=== PATIENT | female | born 1985 | race Caucasian/White ===

== ENCOUNTER → 2018-05-10 17:11 | Outpatient (REF) | payer OTHER, SELFPAY | LOC: LAB 17:11 | PROVIDERS: Family Provider Family Medicine; PCP Family Medicine; Visit Provider Family Medicine | DX: Z34.93 Encounter for supervision of normal pregnancy, unspecified, third trimester (principal) | CPT/HCPCS: 87081; 87653 ==

== ENCOUNTER → 2018-05-23 08:44 | Outpatient (CLI) | payer OTHER, SELFPAY ==
--- NOTE | 2018-05-23 | DI.US.S_ITS ---
PROCEDURE: US OB LIMITED INDICATIONS: 38 weeks size greater than dates OUTSIDE/PRIOR DATING DATA: Last menstrual period (LMP): 08/19/17. LMP-based estimated date of delivery (SCARLETT): 05/26/18. First dating scan (date and location): 11/08/17. Estimated date of delivery (SCARLETT) from first dating scan: 06/05/18.. TECHNIQUE: Real-time scanning was performed of the fetus, with image documentation and biometric measurements. Endovaginal scanning: No COMPARISON: [facility], , OB COMPLETE 14WKS OR MORE, 01/17/2018, 9:04. FINDINGS: General: A single living intrauterine gestation is present. Presentation: Vertex. Placenta: Placental position is anterior, without previa. Amniotic fluid index: 17.7 cm, normal range is 5-24 cm. heart rate: 125 beats per minute. Maternal cervical canal: Not well-seen. biometrics: Biparietal diameter: 37 weeks 4 days Head circumference: 38 weeks 4 days Abdominal circumference: 38 weeks 2 days Femur length: 38 weeks 3 days Estimated gestational age from initial scan: 38 weeks 1 day Composite gestational age from present scan: 38 weeks 2 days Estimated weight and percentile: 3443 g; 67th percentile Measurement variability for biometric dating: +/- 7 days from 14 weeks to 15 weeks 6 days gestation, +/- 10 days from 16 weeks to 21 weeks 6 days gestation, +/- 2 weeks from 22 weeks to 27 weeks 6 days gestation, +/- 3 weeks for 28 weeks gestation or later. weight reference: 4500 g or EFW >90/95% is considered macrosomia or large for gestational age. EFW <10% is small for gestational age. EFW 5% or less is considered intra-uterine growth restriction. Other: Not applicable. IMPRESSION: A single living intrauterine gestation with appropriate interval growth. Dictated by: Tong Coleman [facility] Interpreted: Vero Haskins MD on 05/23/2018 at 10:37 Approved by: Vero Haskins M.D. on 05/23/2018 at 11:22
== END ==
PROVIDERS: Family Provider Family Medicine; PCP Family Medicine; Visit Provider Family Medicine
DX: O36.63X0 Maternal care for excessive fetal growth, third trimester, not applicable or unspecified (principal); Z3A.38 38 weeks gestation of pregnancy
CPT/HCPCS: 76815

== ENCOUNTER 2018-06-06 14:47 | Observation (INO) | payer OTHER, SELFPAY ==
--- NOTE | 2018-06-06 15:49 | DI.US.S_ITS ---
PROCEDURE: US OB LIMITED INDICATIONS: Post dates non reactive NST OUTSIDE/PRIOR DATING DATA: Last menstrual period (LMP): 08/19/17. LMP-based estimated date of delivery (SCARLETT): 05/26/18. First dating scan (date and location): 11/08/17. Estimated date of delivery (SCARLETT) from first dating scan: 06/05/18 TECHNIQUE: Real-time scanning was performed of the fetus, with image documentation. COMPARISON: [facility], OB COMPLETE 14WKS OR MORE, 01/17/2018, 9:04. [facility], OB COMPLETE LESS THAN 14 WKS, 11/08/2017, 11:09. [facility], OB LIMITED, 05/23/2018, 8:58. FINDINGS: A single living intrauterine gestation is present. Presentation: Vertex. Placenta: Placental position is anterior, without previa. Lower placental edge 0.5 to 3 cm from internal cervical os qualifies as low lying placenta. Marginal previa is defined as lower edge 0 to 0.5 mm from internal os. Amniotic fluid index: 12.7 cm, normal range is 5-24 cm. heart rate: 157 beats per minute. Maternal cervical canal: Not well-seen Normal lower limit is 2.5 cm. Estimated gestational age from initial scan: 40 weeks one day BPP: 07/05. IMPRESSION: 1. Single live intrauterine with ultrasound gestational age of 40 weeks one day. 2. BPP 8 out of 8 Dictated by: Jenna Jaime M.D. on 06/06/2018 at 16:45 Approved by: Jenna Jaime M.D. on 06/06/2018 at 16:49
== END 2018-06-06 17:55 | disposition home or self-care (01) ==
LOC: LABOR 14:49
PROVIDERS: Admitting Provider Family Medicine; Family Provider Family Medicine; PCP Family Medicine; Visit Provider Family Medicine
DX: Z34.03 Encounter for supervision of normal first pregnancy, third trimester (principal); Z3A.40 40 weeks gestation of pregnancy
CPT/HCPCS: 76815; 76819; G0378; G0379

== ENCOUNTER 2018-06-07 20:42 | Inpatient (IN) | payer OTHER, SELFPAY ==
[2018-06-08] VITALS (7 sets, daily range): BP systolic 113–136; BP diastolic 54–83; PULSE 76–86; RESP 12–15; TEMP 36.2–36.7; O2SAT 98–100
[2018-06-08] MEDS: ZOLPIDEM 5 MG TABLET PO (00:30)
[2018-06-08 08:24] LABS: Aspartate Aminotransferase 24 IU/L (14-36); BUN Creatinine Ratio 18.3 (6-22); Blood Urea Nitrogen 11 mg/dL (7-17); Estimated Glomerular Filt Rate > 60.0 mL/min (>60); Uric Acid 7.5 mg/dL (2.5-6.2)
[2018-06-08 12:04] LABS: Add Manual Diff / Slide Review NO; Basophils Percent Auto 0.4 % (0-2); Eosinophils Percent Auto 1.8 % (2-4); Hemoglobin 11.7 g/dL (12.0-16.0); Lymphocytes Percent Auto 27.7 % (25-40); Mean Corpuscular HGB Conc 33.4 % (30-36); Mean Corpuscular Hemoglobin 29.9 PG (26-34); Mean Corpuscular Volume 89.5 fL (80-100); Monocytes Percent Auto 6.8 % (3-14); Neutrophils Absolute Auto 4600 /uL (3000-5900); Neutrophils Percent Auto 63.3 % (50-75); Platelet Count 213 X10^3/uL (150-400); Red Blood Cell Count 3.91 X10^6/uL (4.0-5.2); Red Cell Distribution Width 14.9 % (11.6-14.8); White Blood Cell Count 7.2 X10^3/uL (4.5-11.0)
[2018-06-08] MEDS: LACTATED RINGERS 1,000 ML 100 ML IV (15:30)
--- NOTE | 2018-06-08 16:25 | PM.OBHP.1 ---
OB HPI History of Present Illness Chief complaint: INDUCTION Narrative: Ni Jack is a 32 year old female who is brought in today for cervical ripening and they were unable to place Cytotec due to too many uterine contractions. Patient's cervix is borderline favorable approximately 7. She has been jonny but not regular or with significant intensity. She has not had any change in discharge. Her was complicated by gestational hypertension and early preeclampsia. Given she had needed to 40 weeks she was brought in for cervical ripening and induction of labor. Past OB history: This is her 1st Medications: vitamins Allergies: No known drug allergies Past surgical history: Unremarkable Family history: Macrosomia in father's baby's family history. No history of diabetes in her family Holter to behavior: No tobacco, no alcohol no illicit drugs Social history: Patient is . She lives in [facility]. Her parents live in [place], [place] care: Was begun early. Patient had negative serology, A positive, rubella equivocal, GBS negative. Glucose tolerance test was 139 and 3 hr glucose tolerance test was done which was entirely normal. was complicated by gestational hypertension that occurred at approximately 37 weeks. Blood pressures improved with rest and patient never had significant swelling and never had any proteinuria. Uric acid 7.5 this a.m. Evaluation Evaluation Laboratory results: Laboratory Tests 06/07/18 06/08/18 06/08/18 22:30 08:00 08:00 WBC RBC Hgb Hct MCV MCH MCHC RDW Plt Count TNP Neut % (Auto) Lymph % (Auto) [place] % (Auto) Eos % (Auto) Baso % (Auto) Neut # (Auto) BUN 11 Creatinine 0.60 Estimated GFR > 60.0 BUN/Creatinine Ratio 18.3 Uric Acid 7.5 H AST 24 Blood Type O Positive Antibody Screen Negative 06/08/18 08:00 WBC 7.2 RBC 3.91 L Hgb 11.7 L Hct 35.0 L MCV 89.5 MCH 29.9 MCHC 33.4 RDW 14.9 H Plt Count 213 Neut % (Auto) 63.3 Lymph % (Auto) 27.7 [place] % (Auto) 6.8 Eos % (Auto) 1.8 L Baso % (Auto) 0.4 Neut # (Auto) 4600 BUN Creatinine Estimated GFR BUN/Creatinine Ratio Uric Acid AST Blood Type Antibody Screen Meds Home Medications Medication Instructions Recorded Confirmed Type No Known Home Medications 06/08/18 06/08/18 History Allergies Allergy/AdvReac Type Severity Reaction Status Date / Time No Known Drug Allergies Allergy Verified 06/08/18 00:46 Review of Systems Review of Systems Occasional headache, swelling that improved with bedrest. No midepigastric pain. Contractions that are sometimes painful No leaking fluid. No change in discharge. No bleeding Baby has been active Exam Narrative Exam Narrative: Blood pressures have been 120s over 80s Vital signs stable, afebrile Alert and oriented x3 Neck: Supple without adenopathy or thyromegaly Chest: Clear to auscultation without wheezes rhonchi or crackles Cor: Regular rate and rhythm without murmur Abdomen: Gravid with estimated weight 8 and half to 9 lb. Vertex presentation Cervical exam: 1 cm, 70% effaced, -2 station, posterior cervix, ballotable Extremities 1+ pitting edema pretibial and pedal. DTRs are 2+ bilaterally and no clonus External heart monitor shows baseline heart rate initially in the 160s then in the 150s with accelerations and moderate variability with periods of mild variability. No decelerations. Overall category 1 tracing Uterine contractions every 2-3 minutes mild palpation Objective Labs Result Diagrams: 06/08/18 08:00 06/08/18 08:00 Labs: Laboratory Results - last 24 hr 06/07/18 06/08/18 06/08/18 22:30 08:00 08:00 WBC RBC Hgb Hct MCV MCH MCHC RDW Plt Count TNP Neut % (Auto) Lymph % (Auto) [place] % (Auto) Eos % (Auto) Baso % (Auto) Neut # (Auto) BUN 11 Creatinine 0.60 Estimated GFR > 60.0 BUN/Creatinine Ratio 18.3 Uric Acid 7.5 H AST 24 Blood Type O Positive Antibody Screen Negative 06/08/18 08:00 WBC 7.2 RBC 3.91 L Hgb 11.7 L Hct 35.0 L MCV 89.5 MCH 29.9 MCHC 33.4 RDW 14.9 H Plt Count 213 Neut % (Auto) 63.3 Lymph % (Auto) 27.7 [place] % (Auto) 6.8 Eos % (Auto) 1.8 L Baso % (Auto) 0.4 Neut # (Auto) 4600 BUN Creatinine Estimated GFR BUN/Creatinine Ratio Uric Acid AST Blood Type Antibody Screen Assessment and Plan Plan: Plan: 32-year-old at 40 and 3 7 weeks estimated gestational age based on an EDC of 06/05/2018 based on 1st trimester ultrasound and LMP is brought to Labor and delivery for induction of labor after cervical ripening due to smoldering preeclampsia. Patient has had elevated blood pressures over the last 3 weeks of 120 to 130s over 80s to 90s. Patient has had lower extremity edema as well. Now uric acid is 7.5 up from 7.22 days ago. Patient was to receive Cytotec for cervical ripening last night but this was not done because of too many uterine contractions. The contractions are mild to moderate. Long discussion with patient and discussed a trial of Pitocin and if progress did not occur then home and returned on Tuesday for NST and repeat labs and then repeat induction attempt on Tuesday. We discussed all options and patient stated that she prefers to have a at this time. We discussed the risk of a including intraoperative risk as well as risks to the baby as well as recovery and she requests to have a versus a trial of labor. Dr. Paez is consulted for the same. GBS negative, Rh positive 1 hr glucose tolerance test was 139 and 3 hr glucose tolerance test was normal. We will proceed with at patient's request.
[2018-06-08] MEDS: CEFOTETAN 2 GM/50 ML PIGGYBACK IV (16:27)
[2018-06-08] MEDS: CITRIC ACID/SODIUM CITRATE 30 ML SOLUTION PO (16:27)
--- NOTE | 2018-06-08 17:04 | SUR.OPER ---
VIABLE MALE INFANT DELIVERED AT 1704
--- NOTE | 2018-06-08 17:33 | SUR.OPER ---
cord blood tubes x2 sent with OBRN , WELL PLACENTA DOUBLE BAGGED
--- NOTE | 2018-06-08 17:51 | PM.OP.1 ---
Operative Date/Time/Diagnoses Date of procedure: 06/08/18 Time of procedure: 17:51 Pre-op diagnosis: Term intrauterine , preeclampsia, patient requests for section Post-op diagnosis: same Procedure & Clinicians Procedure: Primary low transverse section Same procedure as scheduled: Yes Indications: Term intrauterine with elevated uric acid presumed early preeclampsia who was brought in today for induction. See Dr. Tom is a history and physical. After evaluation all and long discussion by both myself and Dr. Tom patient was requesting section. Surgeon: Zeus Paez Cutter Barrel Drum: Haleigh Tom Anesthesia Type: Spinal Operative Notes Findings: Viable male weighing 9 lb 6.5 oz. Apgars 7 and 8. Meconium. Normal pelvic organs. Closure Type: primary Specimen(s): other Applied: catheter Estimated Blood Loss (mL): 350 Procedure in detail: Consent was discussed and signed with both her and her . She was taken to the operative theater up and following scopes protocol procedure was undertaken. She was placed in a sitting position on the operative table and spinal was undertaken. Excellent result. She was placed in the supine which position and prepped and draped after Paredes was placed. Pfannenstiel incision was then undertaken without complications down to the subcutaneous tissue in the midline. Blunt dissection was used to remove the subcutaneous tissue. No bleeding was noted. Incision was then scored across the midline until muscle air was identified. Curved scissors were then used to his extend both lateral positions. On the fascia. Mamie to used to elevate the fascia superiorly blunt dissection was used except in the midline where curved scissors were used. This was repeated inferiorly. Blunt dissection was then done through the muscle layer until peritoneum was identified. Peritoneum was elevated and under direct visualization into heard and blunt dissection was then done until appropriate sized incision. Bladder blade was placed in the incision and bladder flap was then developed. Bladder blade was placed into the bowel or flap. A low transverse incision was then done on to the uterus until meconium fluid was identified. Blunt dissection was then used to extend the incision. Head was then elevated and with pressure from clinical physician assistant was delivered bulb suction on pharynx and nasal mucosa child was then delivered cord was clamped and cut was crying aggressively. Handed off to awaiting pediatric nurse. Cord bloods were obtained. Placenta was then manually extracted. Uterine contents was wiped with a wet lap sponge x2. No products were noted. Corners incision in the grass with ring forceps along with inferior edge of the wound. Ring forceps were passed through the cervix into the vagina and handed off the operative theater. Incision was then closed with running locked one chromic. This was repeated with a 2nd 1 chromic non locked imbricating suture line. Irrigation was done. Removed. Re-evaluated wound and found to be dry. The bladder flap was then closed with 2.0 running Vicryl. Peritoneum was then closed with running 2 0 Vicryl. Fascia was closed with running 1 Vicryl. Irrigation was done to the subcutaneous tissue no bleeding was noted. 330 Vicryl interrupted sutures were used to approximate the subcutaneous tissue. Wound was closed with 4 0 subcuticular Vicryl. Steri-Strips dressing were applied. Patient and mother in stable condition. All sponge instrument and needle counts were correct. EBL 350 cc. Complications: none Condition: stable Disposition: Acute Care Plan for aftercare: Routine care transferred to labor and delivery
[2018-06-08] MEDS: MEPERIDINE 25 MG/ML SYRINGE IV (18:04)
--- NOTE | 2018-06-08 18:32 | SUR.PHASEI ---
Transferred to . Prior to transfer Pitocin drip completed and IV saline locked for transfer.
[2018-06-08] MEDS: DEXTROSE 5%-LACTATED RINGERS 1,000 ML 125 ML IV (18:54)
[2018-06-08] MEDS: KETOROLAC 30 MG/ML VIAL IV (23:45)
[2018-06-09] MEDS: KETOROLAC 30 MG/ML VIAL IV ×2 (05:36→12:30)
--- NOTE | 2018-06-09 08:30 | PM.PN.1 ---
Subjective Date Patient Seen: 06/09/18 Time Patient Seen: 08:32 Interval history: Patient feeling well. Pain is well controlled. Minimal lochia. No other significant changes. Has not ambulated yet. Exam Vital Signs (past 8 hours): Oxygen Delivery Method Room Air Narrative Exam Narrative: Vital signs are stable. Alert female in no acute distress lying in bed. Lungs are clear. Heart regular rate and rhythm. Abdomen is soft positive bowel sounds. Incision is clean and dry. Uterus is firm. At umbilicus. Extremities without cyanosis clubbing edema. No tenderness. Skin is with no rash. Objective Labs Result Diagrams: 06/08/18 08:00 06/08/18 08:00 Labs: Laboratory Results - last 24 hr 06/07/18 06/08/18 22:30 08:00 WBC 7.2 RBC 3.91 L Hgb 11.7 L Hct 35.0 L MCV 89.5 MCH 29.9 MCHC 33.4 RDW 14.9 H Plt Count 213 Neut % (Auto) 63.3 Lymph % (Auto) 27.7 [place] % (Auto) 6.8 Eos % (Auto) 1.8 L Baso % (Auto) 0.4 Neut # (Auto) 4600 Blood Type O Positive Antibody Screen Negative Assessment & Plan Plan: Assessment/Plan Narrative: Postop day 1. Doing extremely well. Routine care. Routine postop education discussed. Follow-up a.m.. Probable discharge. Follow up with me in 2 weeks.
[2018-06-09] MEDS: OXYCODONE/ACETAMINOPHEN 5/325 TABLET 1 TAB PO ×2 (09:09→09:31)
[2018-06-09] MEDS: DOCUSATE 250 MG CAPSULE PO (09:15)
[2018-06-09 15:50] LABS: Add Manual Diff / Slide Review NO; Basophils Percent Auto 0.4 % (0-2); Eosinophils Percent Auto 1.5 % (2-4); Hematocrit 27.5 % (36-46); Hemoglobin 9.2 g/dL (12.0-16.0); Lymphocytes Percent Auto 21.9 % (25-40); Mean Corpuscular HGB Conc 33.5 % (30-36); Mean Corpuscular Hemoglobin 30.3 PG (26-34); Mean Corpuscular Volume 90.3 fL (80-100); Monocytes Percent Auto 8.2 % (3-14); Neutrophils Absolute Auto 6200 /uL (3000-5900); Platelet Count 179 X10^3/uL (150-400); Red Blood Cell Count 3.04 X10^6/uL (4.0-5.2); Red Cell Distribution Width 14.6 % (11.6-14.8); White Blood Cell Count 9.2 X10^3/uL (4.5-11.0)
[2018-06-09] MEDS: OXYCODONE/ACETAMINOPHEN 5/325 TABLET 2 TAB PO ×2 (17:25→21:41)
[2018-06-09] MEDS: IBUPROFEN 600 MG TABLET PO ×2 (17:25→23:22)
[2018-06-09 21:41] VITALS: TEMP 36.8
[2018-06-09 23:22] VITALS: TEMP 36.8
[2018-06-10] MEDS: OXYCODONE/ACETAMINOPHEN 5/325 TABLET 1 TAB PO ×2 (01:48→06:32)
[2018-06-10] MEDS: IBUPROFEN 600 MG TABLET PO (06:31)
[2018-06-10] MEDS: DOCUSATE 250 MG CAPSULE PO (12:23)
[2018-06-10] MEDS: PRENATAL VIT,CALC/IRON/FOLIC 1 TABLET 1 TAB PO (12:25)
--- NOTE | 2018-06-10 12:58 | P.DS_ITS ---
History of Present Illness Date Patient Seen: 06/10/18 Time Patient Seen: 12:53 Chief complaint: INDUCTION Narrative: Patient admitted for induction of labor secondary to elevated blood pressure and other suggestions of bending preeclampsia. She had platelets abnormal any uric acid abnormal. Baby thrive did well normal and STDs. Patient failed induction and was taken to section and this is 2 days ago now. Patient is doing fine eating voiding no fevers no chills no shortness of breath blood pressure is stable no significant edema protein urea. DB doing fine in terms of feeding voiding. Discharge Providers Date of admission: 06/07/18 20:42 Primary care physician: Haleigh Tom MD Consults: 06/08/18 18:33 Consult to Line Service Supervisor Routine Comment: Discharge provider: Jose Guadalupe Ryder MD Summary Discharge Diagnosis: Discharge diagnosis 1. Normal primigravida post section for prevention of progression of early preeclampsia. Hospital Course: Patient did well with normal blood pressures not requiring medication baby thriving. Mom's elected to not breast-feed has not developed headache proteinuria significant edema blood pressures been borderline few times but I think that is related to some of her incisional discomfort. Has appointment set up in [address] Tom for follow-up she is to call me if she has any symptoms which we reviewed with her at length. Status at Discharge Cognitive/behavioral status at discharge: Normal Functional status at discharge: independent ambulation Overall status at discharge: patient is progressing back to baseline Time Spent with Patient Less than 30 minutes Exam Vital Signs (past 8 hours): Oxygen Delivery Method Room Air Narrative Exam Narrative: PE are LA EOMs intact Neck without mass Lungs clear to auscultation percussion Cardiovascular exam shows regular rate and rhythm without murmur or S3 no significant dependent edema Abdomen soft as lower incisional area tenderness bowel sounds are present patient is voiding. Neuro is intact symmetrical to motor and sensory speech is clear No significant edema noted shows no significant problems minimal bleeding and incision healing well abdomen. Objective Labs Result Diagrams: 06/09/18 15:44 06/08/18 08:00 Labs: Laboratory Results - last 24 hr 06/09/18 15:44 WBC 9.2 RBC 3.04 L Hgb 9.2 L Hct 27.5 L MCV 90.3 MCH 30.3 MCHC 33.5 RDW 14.6 Plt Count 179 Neut % (Auto) 68.0 Lymph % (Auto) 21.9 L [place] % (Auto) 8.2 Eos % (Auto) 1.5 L Baso % (Auto) 0.4 Neut # (Auto) 6200 H Discharge Plan Discharge Plan Patient Disposition: Home, Self-Care Discharge Med Rec/Prescriptions Prescriptions: No Action No Known Home Medications RF: 0 Discharge Data Primary Care Provider: Haleigh Tom Attending Provider: Haleigh Tom Admit Date/Time: 06/07/18 20:42
== END 2018-06-10 13:40 | disposition home or self-care (01) | DRG 766 ==
PROVIDERS: Family Medicine; Admitting Provider Family Medicine; Family Provider Family Medicine; PCP Family Medicine; Visit Provider Family Medicine
PROC: 10D00Z1 Extraction of Products of Conception, Low, Open Approach (ICD-10-PCS; CPT 59514; principal; 2018-06-08 15:15)
DX: O14.94 Unspecified pre-eclampsia, complicating childbirth (principal); Z3A.40 40 weeks gestation of pregnancy; Z37.0 Single live birth; O77.0 Labor and delivery complicated by meconium in amniotic fluid
CPT/HCPCS: 36415; 59050; 84450; 84550; 85025; 86850; 86900; 86901; J1885; J2175; J2274; J2590; J7121